=== PATIENT | female | born 2000 | race Caucasian/White ===

== ENCOUNTER 2022-10-16 19:18 | Emergency (ER) | payer OTHER ==
[2022-10-16 19:27] VITALS: BP 117/78; PULSE 84; RESP 16; TEMP 98.1; BMI 29.9
[2022-10-16] MEDS ORDERED: FLUORESCEIN NA 1 EA STRIP ONE (19:41)
[2022-10-16] MEDS ORDERED: ERYTHROMYCIN 0.5% OPHTHALMIC OINTMENT 3.5 GM TUBE ONE (19:47)
[2022-10-16] MEDS ORDERED: ERYTHROMYCIN 0.5% OPHTHALMIC OINTMENT 3.5 GM TUBE OS ONE (19:47)
== END 2022-10-16 19:52 | disposition home or self-care (01) ==
LOC: FER 19:18
DX: H04.222 Epiphora due to insufficient drainage, left side (principal); H10.32 Unspecified acute conjunctivitis, left eye
CPT/HCPCS: 99283-25